=== PATIENT | female | born 2000 | race Two or more races ===

== ENCOUNTER 2025-05-26 00:23 | Inpatient (IN) | payer OTHER ==
[~2025-05-26] VITALS: Ht 152.4 cm; Wt 2.7 kg
[2025-05-26] VITALS (7 sets, daily range): BP systolic 107–123; BP diastolic 61–81; O2SAT 100
[2025-05-26] MEDS ORDERED: RINGERS SOLUTION,LACTATED 1,000 ML IV SCH (00:30)
[2025-05-26 01:28] LABS: BASO % 0.4 % (0.1-1.2); EOS # 0.06 (0.04-0.54); EOS % 0.6 % (0.7-7.0); LYMPH # 1.85 (1.18-3.74); LYMPH % 19.4 % (19.3-53.1); MEAN PLATELET VOLUME 9.10 fl (9.4-12.4); MONO # 0.69 (0.24-0.82); MONO % 7.2 % (4.7-12.5); NEUT # 6.85 (1.56-6.13); NEUT % 71.8 % (34.0-71.1); RED CELL DISTRIBUTION WIDTH 11.7 % (11.6-14.4)
[2025-05-26 01:41] LABS: URINE APPEARANCE Clear; URINE BILIRRUBIN Negative (NEGATIVE); URINE BLOOD Negative; URINE COLOR Yellow; URINE GLUCOSE Negative (NEGATIVE); URINE KETONE Negative (NEGATIVE); URINE LEUKOCYTE Small; URINE NITRATE Negative; URINE PROTEIN Negative (NEGATIVE); URINE UROBILINOGEN 0.2 E.U./dl
[2025-05-26 01:43] LABS: URINE BACTERIA 317.9 uL (0.0-1933); URINE EPITHELIAL CELLS 5.5 uL (0.0-38.8); URINE WBC 24.8 uL (0.0-23.2)
[2025-05-26 01:56] LABS: INR 0.94
[2025-05-26 02:01] LABS: URINE CAST 0.00 uL (0.0-1.40); URINE RBC 1.0 uL (0.0-20.8)
[2025-05-26 02:01] LABS: ALT/SGPT 16.0 U/L (12-78); AST/SGOT 16.0 U/L (15-37); BILIRUBIN TOTAL 0.48 mg/dL (0.3-1.2); BUN CREA RATIO 16.0 (7.0-25.0); CREATININE SERUM 0.51 mg/dL (0.55-1.02); GFR 150.79; GLOBULINA 3.6 G/DL (2.4-3.5); GLUCOSE FASTING 87.0 mg/dL (65-100); OSMOLALITY SERUM 279.0 MOSM/KG (275-295)
[2025-05-26] MEDS ORDERED: MORPHINE SULFATE 4 MG/ML CARTRIDGE IV ONE (04:45)
[2025-05-26] MEDS ORDERED: PRENATAL TABLE1 EAC1 PO (04:59)
[2025-05-26] MEDS ORDERED: OXYTOCIN 20 UNITS/500ML RL PIGGYBAG IV ONE (06:30)
[2025-05-26] MEDS ORDERED: OXYTOCIN 500 ML IV SCH (06:45)
[2025-05-26] MEDS ORDERED: MORPHINE SULFATE 4 MG/ML CARTRIDGE IV STA (14:19)
[2025-05-26] MEDS ORDERED: ERYTHROMYCIN BASE OPHT 1GM EACH TUBE OP ONE (18:59)
[2025-05-26] MEDS ORDERED: OXYTOCIN 10 UNITS/ML VIAL ONE (18:59)
[2025-05-26] MEDS ORDERED: CEFAZOLIN SODIUM 1,000 MG VIAL ONE (19:57)
[2025-05-26] MEDS ORDERED: MORPHINE SULFATE 4 MG/ML CARTRIDGE IV PRN (20:45)
[2025-05-27 02:00] VITALS: BP 113/74
[2025-05-27] MEDS ORDERED: CEFAZOLIN SODIUM 1,000 MG VIAL IV SCH (02:00)
[2025-05-27 02:43] LABS: BASO % 0.2 % (0.1-1.2); EOS # 0.00 (0.04-0.54); EOS % 0.0 % (0.7-7.0); LYMPH # 0.90 (1.18-3.74); LYMPH % 7.2 % (19.3-53.1); MEAN PLATELET VOLUME 8.90 fl (9.4-12.4); MONO # 0.92 (0.24-0.82); MONO % 7.4 % (4.7-12.5); NEUT # 10.54 (1.56-6.13); NEUT % 84.9 % (34.0-71.1); RED CELL DISTRIBUTION WIDTH 11.6 % (11.6-14.4)
[2025-05-27 06:25] VITALS: BP 122/75
[2025-05-27 08:41] VITALS: BP 108/69
[2025-05-27] MEDS ORDERED: ACETAMINOPHEN 500 MG GEL..CAP PO PRN (09:30)
[2025-05-28 00:27] VITALS: BP 99/60
[2025-05-28 08:00] VITALS: BP 95/62
[2025-05-28 16:05] VITALS: BP 106/66
[2025-05-29] VITALS: BP 108/69
[2025-05-29] MEDS ORDERED: IBUPROFEN800 MG PO (07:55)
[2025-05-29 08:00] VITALS: BP 108/70
== END 2025-05-29 14:49 | disposition home or self-care (01) | DRG 788 ==
LOC: O/R 00:23 → LDR 00:23 → O/R 19:46 → OB/GYN 21:33
PROVIDERS: ADMIT Specialist; ATTEND Specialist
PROC: 4A1HXCZ Monitoring of Products of Conception, Cardiac Rate, External Approach (ICD-10-PCS; 2025-05-26)
PROC: 10D00Z1 Extraction of Products of Conception, Low, Open Approach (ICD-10-PCS; principal; 2025-05-26 21:15)
DX: O82 Encounter for cesarean delivery without indication (principal); O62.0 Primary inadequate contractions; Z3A.37 37 weeks gestation of pregnancy; Z37.0 Single live birth